=== PATIENT | female | born 1940 | race Caucasian/White ===

== ENCOUNTER 2016-08-04 01:46 | Inpatient (IN) | payer OTHER, MEDICARE ==
[~2016-08-04] VITALS: Ht 165.1 cm; Wt 62.6 kg
[~2016-08-04 01:46] MED LIST: ATORVASTATIN CA40 M1 PO
--- NOTE | 2016-08-04 10:46 | Admission Core Measures ---
Admission Meds I reviewed the following Meds: Current Medications Sig/Festus Start time Last Medication Dose Stop Time Status Admin Acetaminophen 975 MG ONCE 08/04 NR (Tylenol) 08/04 2358 Oxycodone HCl 10 MG ONCE 08/04 NR (Roxicodone) 08/04 2358 Acute Coronary Syndrome Inclusion Criteria ACS Diagnosis No Inpatient Core Measures LDL Reminder: If No, please order W/I first 24hr of stay Congestive Heart Failure Inclusion Criteria CHF Diagnosis No Cerebrovascular accident Inclusion Criteria CVA/TIA Diagnosis No Inpatient Core Measures Bedside Swallow Eval Reminder: If BSE failed, place ST order Antithrombotic Reminder: Order Antithrombotic Medication by end of day 2 Antithrombotic Reminder: Document Reason Antithrombotic Not ordered by end of day 2 AFIB/Flutter Reminder: If Present, add to problem list AFIB/Flutter Reminder: Order Anticoag Medication for pts with AFIB/Flutter Atherosclerosis Reminder: If Present, add to problem list LDL Reminder: If No, please order W/I first 24hr of stay PT Order Reminder: If No, please order Venous thromboembolism Inpatient Core Measures VTE Risk Factors: Age > 40, Surgery No [facility] VTE prophylaxis d/t No contraindications No VTE Pharm Prophylaxis d/t No contraindications Inclusion Criteria - Per Current guidelines, there needs to be overlap - treatment for the first 5 days of Warfarin therapy. - Parenteral Anticoagulation (IV or SC) needs to be - given along with Warfarin therapy. VTE Diagnosis No VTE Type NONE VTE Confirmed by (Test) NONE Problem List As ranked by this Provider includes Assessment & Plan 1. Status post total hip replacement, left HOME MEDS Home Med List Atorvastatin Calcium 40 MG TABLET 1 TAB PO DAILY CHOLESTEROL (Reported)
[2016-08-04] MEDS ORDERED: MIRALAX17 G1 PO (14:02)
[2016-08-04] MEDS ORDERED: COLACE100 M1 PO (14:02)
[2016-08-04] MEDS ORDERED: ASPIRIN EC325 M2 PO (14:02)
[2016-08-04] MEDS ORDERED: DILAUDID2 M1 PO (14:02)
--- NOTE | 2016-08-04 14:26 | Surgical Discharge Summary ---
See Addendum Visit Information Visit Dates Admission Date: 08/04/16 Discharge Date: 08/07/16 History of Present Illness Chief Complaint: Left hip DJD/osteoarthritis, left knee pain Medical History Cardiovascular: hyperlipidemia Cancer(s): breast cancer (mets to brain) Isolation History: Standard Tetanus Vaccine: 11/21/15 Surgical History Pertinent Surgical History: hip replacement, masectomy Psychosocial History Who Do You Live With? Patient/Self Services at Home: NONE What is Your Primary Language? Luxembourgish Review of Systems: See H&P Hospital Course Course Attending Physician: POORNIMA CARRINGTON MD Primary Care Physician: TAYLOR TATE MD [facility] Course: Patient was admitted to [facility] for elective surgery on 08/04/2016 and underwent left total hip replacement. The patient tolerated the procedure well, without complications. The postoperative course remained uneventful. Pain was well controlled with oral pain medication, tolerated a regular diet, and voiding without difficulty. The patient was evaluated by physical therapy during admission, was deemed stable from a medical standpoint, and was discharged. Allergies: Coded Allergies: Penicillins (CHILDHOOD - RASH 08/04/16) RASH PER MAGNOLIA IN SAME DAY. -CG 08/04/16 1125 Significant Procedures: 08/04/2016 left anterior total hip replacement Disposition Summary Disposition Principal Diagnosis: Left hip DJD/osteoarthritis Additional Diagnosis: hyperlipidemia Discharge Disposition: home health services Discharge Instructions General Discharge Information Code Status: Full Code Patient's Diet: Heart healthy Patient's Activity: Avoid strenuous activity. You may ambulate as desired with rolling walker and progressed per PT recommendations. No driving while using narcotics and until cleared by M.D. Follow-Up Instructions/Appts: Incision: Dry dressing. May shower. No baths. No ointments of any kind. Ice as needed. Bowel regimen: Colace and or MiraLAX Weight-bearing as tolerated Follow-up with Dr. Carrington in 6 weeks. Call office for fevers greater than 101.5, excessive drainage or inability to bear weight on operative extremity. Visiting nurse will remove vicki. Medications at Discharge Discharge Medications: Continue taking these medications: Atorvastatin Calcium (Atorvastatin Calcium) 40 MG TABLET 1 Tablet ORAL DAILY Start taking the following new medications: Docusate Sodium (Colace) 100 MG CAPSULE 1 Capsule ORAL TWICE DAILY Days = 7 No Refills Instructions: HOLD FOR LOOSE BM'S Polyethylene Glycol 3350 (Miralax) 17 GRAM POWD.PACK 1 Packet ORAL DAILY Days = 7 No Refills Instructions: HOLD FOR LOOSE BM Aspirin (Ecotrin*) 325 MG TABLET.DR 1 Tablet ORAL DAILY Days = 28 No Refills Hydromorphone HCl (Dilaudid) 2 MG TABLET 1-2 Tablet ORAL EVERY 4 HOURS NEEDED as needed for PAIN Qty = 36 No Refills
--- NOTE | 2016-08-04 15:28 | RADIOLOGY REPORT ---
EXAMINATION: XR HIP, LEFT CLINICAL INFORMATION: Status post left total hip replacement COMPARISON: MRI dated 03/12/2016 TECHNIQUE: AP and crosstable lateral views of the left hip. FINDINGS: Prosthetic components of the left total hip arthroplasty are appropriately aligned. No periprosthetic fracture. Gas from recent surgery is present in the surrounding soft tissues. IMPRESSION: Normal postoperative appearance of the left total hip prosthesis.
--- NOTE | 2016-08-04 15:54 | Patient Discharge Instructions ---
Discharge Instructions General Discharge Information You were seen/treated for: Left hip DJD/osteoarthritis You had these procedures: Left anterior total hip replacement Watch for these problems: Fever greater than 101, excessive drainage from the wound, and inability to bear weight on the operative side. Do not soak the wound: Yes Daily wet to dry dressings: No No bath, but you may shower: Yes Other wound care: Dry dressing change once daily starting postoperative day #2. You may shower as desired. No baths. No ointments of any kind. Ice as needed for comfort. Diet Continue normal diet: Yes Recommended Diet: Heart Healthy Activity Full Activity/No Limits: No Activity Self Limited: Yes Pounds, do NOT lift more than: 5 Activity Limited to: Weight bear as tolerated Other activity limits: Avoid strenuous activity. You may ambulate as desired with rolling walker and progressed per PT recommendations. No driving while using narcotics and until cleared by [facility] Acute Coronary Syndrome Inclusion Criteria At DC or during hospital stay patient has or had the following: ACS DIAGNOSIS No Discharge Core Measures Meds if any: Prescribed or Continued at Discharge Meds if any: NOT Prescribed or Continued at Discharge Congestive Heart Failure Inclusion Criteria At DC or during hospital stay patient has or had the following: CHF DIAGNOSIS No Discharge Core Measures Meds if any: Prescribed or Continued at Discharge Meds if any: NOT Prescribed or Continued at Discharge Cerebrovascular accident Inclusion Criteria At DC or during hospital stay patient has or had the following: CVA/TIA Diagnosis No Discharge Core Measures Meds if any: Prescribed or Continued at Discharge Meds if any: NOT Prescribed or Continued at Discharge Venous thromboembolism Inclusion Criteria VTE Diagnosis No VTE Type NONE VTE Confirmed by (Test) NONE Discharge Core Measures - Per Current guidelines, there needs to be overlap - treatment for the first 5 days of Warfarin therapy. - If discharged on Warfarin prior to 5 days of - overlap therapy, the patient will need to be - assessed for post discharge needs including - *Post discharge parental anticoagulation - *Warfarin and/or parental anticoagulation education - *Follow up date to check INR post discharge At least 5 days overlap therapy as Inpatient No Meds if any: Prescribed or Continued at Discharge Note: Overlap Therapy is Warfarin and Anticoagulant Meds if any: NOT Prescribed or Continued at Discharge
--- NOTE | 2016-08-04 16:23 | Operative Report ---
Operative/Inv Procedure Report Surgery Date: 08/04/16 Name of Procedure: Left total hip replacement Pre-Operative Diagnosis: Left hip avascular necrosis Post-Operative Diagnosis: Same Estimated Blood Loss: 250 Surgeon/Winder Operator: ZEB QUIROGA,POORNIMA Boyce Anesthesia: block Operative/Procedure Note Note: Description of Procedure: The patient was taken to the operating room and positively identified. After induction of spinal anesthesia and administration of appropriate pre-operative antibiotics, the patient was positioned supine on the operating room table and all bony prominences were well padded. After performing a surgical timeout, the left lower extremity was prepped and draped in the usual sterile fashion. A direct anterior approach was made to the left hip. The incision was carried sharply through superficial soft tissues to the level of the fascia. Meticulous hemostasis was maintained with Bovie electocautery. The fascia over the tensor fascia rufino muscle was opened sharply and the interval between the TFL and the sartorius was entered bluntly taking care to stay lateral to the lateral femoral cutaneous nerve. Retractors were placed around the femoral neck and the pericapsular fat was identified. The ascending branches of the lateral femoral circumflex vessels were identified and carefully coagulated. The pericapsular fat and anterior capsule were then resected. A napkin ring osteotomy was performed and the femoral head was removed without difficulty. Attention was then turned to the acetabulum. After appropriate placement of retractors, the acetabulum was exposed. Soft tissue was cleaned from the acetabular margin and notch. Overhanging osteophytes were removed and the teardrop was exposed. The acetabulum was then sequentially reamed to accept a 54 mm Chandu Tritanium hemispherical solid back shell. This was impacted into place in the appropriate position and fitted with a 36 mm Trident X3 zero degree polyethylene insert. Attention was then turned to the femur. After performing the appropriate ligament releases, the proximal femur was exposed. It was then sequentially broached to accept a size 7 Chandu accolade 2 stem. This was trialed for leg length and stability. The trial component was removed and the final component was impacted into place. The trunnion was carefully cleaned and fit with a 36 mm, -5 Biolox delta ceramic femoral head. The hip was reduced and put through a full range of motion and found to be stable. The articular space was then irrigated with sterile saline. The periarticular soft tissues were infilitrated with Marcaine. The fascial layer was closed with interrupted #1 vicryl suture and the skin was re-approximated with interrupted 2 -0 vicryl. The skin was closed with a running 3-0 V-Lock suture. Steri-strips and a sterile dressing were applied. The patient was awakened and taken to the recovery room in satisfactory condition.
--- NOTE | 2016-08-04 16:37 | PN- Orthopedic ---
Subjective Subjective: Post op check Awake and alert, no specific complaints, no nausea, pain well controlled at this time Objective Vital Signs and I&Os VSS, afebrile General: awake and alert Chest: clear anteriorly bilaterall, RRR Abd: soft, good bs Ext: warm, no edema, positive sensate, no calf tenderness, 5/5 CHARU BLE Wound: dressed, dry Assessment/Plan Assessment/Plan 76 yo female s/p L THR pain management asa 325mg po bid for dvt ppx PT - WBAT plan to dc to rehab vs home once cleared by PT Core Measures/Miscellaneous Venous Thromboembolism VTE Risk Factors: Age > 40, Surgery VTE Contraindications: No Contraindications VTE Diagnosis: No VTE Type: NONE VTE Confirmed by (Test): NONE Beta Viktor Is Beta Viktor a Home Med? No Antibiotics Is Patient on Antibiotics? Yes If Yes: prophylaxis (24 hrs post op)
[2016-08-04 16:58] VITALS: BP 142/71
--- NOTE | 2016-08-04 18:55 | NUR ---
ADMISSION NOTE: PT ARRIVED ON FLOOR AT 1645. PT A&OX3, RA, VSS, AFEBRILE, PT DENIES PAIN AT THIS TIME. +CMS, +PULSES. DRESSING TO L HIP C,D,I. ICE TO AREA. #20 IV LH W/D5 1/2 NS INFUSING AT 75ML/HR. PT ORIENTED TO ROOM/FLOOR. ASST TO BR W/RW X1. VOIDED IN HAT W/NO DIFFICULTY. DINNER ORDERED.
--- NOTE | 2016-08-04 18:58 | NUR ---
ADMISSION NOTE: PT ARRIVED TO FLOOR AT 1730 FROM ED. PT A&OX3, RA, VSS, AFEBRILE. SKIN INTACT. PT AMBULATED TO ASST X1 FEELING "UNSTEADY". NO H/O FALL. PT COMPLAINING OF PAIN 8/10 IN LOWER BACK. #20 IV IN LAC, LR @150ML/HR. PT ASKING ABOUT ZOFRAN AND ATIVAN ORDERS. SPOKE W/INFORMATICIST TO GET ORDERS IN PLACE. MEDICATED FOR PAIN. WILL REASSESS CIWA AND NAUSEA. PT ORIENTED TO FLOOR/ROOM.
[2016-08-04 19:25] VITALS: BP 128/79
[2016-08-04 21:15] VITALS: BP 110/78
[2016-08-04 23:08] VITALS: BP 106/68
[2016-08-05 03:34] VITALS: BP 110/60
[2016-08-05 06:13] VITALS: BP 120/60
--- NOTE | 2016-08-05 07:09 | PN- Orthopedic ---
Subjective Subjective: The patient seen this morning postoperatively day #1. She reports the pain is under adequate control and has no other complaints at the current time. She is slightly anxious worked with physical therapy this morning. Objective Vital Signs and I&Os Vital Signs Date Time Temp Pulse Resp B/P B/P Pulse O2 O2 Flow FiO2 Mean Ox Delivery Rate 08/05 612 97.8 77 20 120/60 95 Room Air 08/05 0334 97.8 73 20 110/60 97 Room Air 08/04 2308 98.0 72 20 106/68 96 Room Air 08/04 2115 98.1 88 20 110/78 96 Room Air 08/04 1925 97.6 78 20 128/79 96 Room Air 08/04 1658 97.4 69 20 142/71 98 Room Air Intake & Output 08/05 0808/05 0000 08/04 1600 08/04 0808/04 0000 08/03 1600 Intake Total 1130 1050 Output Total 500 450 Balance 630 600 Intake, IV 650 450 Intake, Oral 480 600 Output, Urine 500 450 Patient 138 lb Weight Weight Estimated Measurement Method Physical Exam: Gen.: Alert and in no obvious distress Skin: Warm and dry Extremities: Bilateral lower extremities are warm without calf tenderness or significant edema. Gross motor and sensory are intact. Left hip surgical dressing is clean, dry, and intact without signs of infection. Assessment/Plan Assessment/Plan Assessment: 76-year-old female status post left total hip arthroplasty postoperative day 1. The patient is progressing as expected and her pain is under adequate control. Plan: Out of bed with physical therapy Hep-Lock IV fluids Continue current pain regiment Strict I's and O's Follow-up morning laboratory studies GI and DVT prophylaxis Core Measures/Miscellaneous Venous Thromboembolism VTE Risk Factors: Age > 40, Surgery VTE Contraindications: No Contraindications VTE Diagnosis: No VTE Type: NONE VTE Confirmed by (Test): NONE Beta Viktor Is Beta Viktor a Home Med? No Antibiotics Is Patient on Antibiotics? No
[2016-08-05 08:10] LABS: ABSOLUTE BASOPHIL COUNT 0 /CUMM (0.0-0.2); ABSOLUTE EOSINOPHIL COUNT 0.1 /CUMM (0.0-0.7); ABSOLUTE GRANULOCYTE CT 6.8 /CUMM (1.4-6.5); ABSOLUTE LYMPH COUNT 0.9 /CUMM (1.2-3.4); BASOPHIL % 0.2 % (0.0-2.0); EOSINOPHIL % 0.9 % (0-5); GRANULOCYTE % 77.9 % (42.2-75.2); HEMATOCRIT 31.2 % (37-47); MEAN CORPUSCULAR HGB 33.4 PG (27.0-31.0); MEAN CORPUSCULAR VOLUME 98.3 FL (81.0-99.0); MEAN PLATELET VOLUME 7.6 FL (7.4-10.4); PLATELET COUNT 209 /CUMM (130-400); RBC DISTRIBUTION WIDTH 13.3 % (11.5-14.5); RED BLOOD CELL CT 3.17 /CUMM (4.20-5.40); WHITE BLOOD CELL COUNT 8.8 /CUMM (4.8-10.8)
--- NOTE | 2016-08-05 09:51 | Cons- Medical ---
General Information and HPI Consulting Request Date of Consult: 08/05/16 Requested By: POORNIMA CARRINGTON MD Reason for Consult: Medical comanagement Source of Information: patient, old records Exam Limitations: no limitations History of Present Illness: 76-year-old female with no significant past medical history except for dyslipidemia is status post elective left total hip arthroplasty day 1 without complication. She does have moderate amount of pain of her left hip. She has had no bowel movements yet. Pain adequately controlled on current pain medication. Allergies/Medications Allergies: Coded Allergies: Penicillins (CHILDHOOD - RASH 08/04/16) RASH PER MAGNOLIA IN SAME DAY. -CG 08/04/16 1125 Home Med List: Aspirin (Ecotrin*) 325 MG TABLET.DR 1 TAB PO DAILY DVT PROPHYLAXIS Atorvastatin Calcium 40 MG TABLET 1 TAB PO DAILY CHOLESTEROL (Reported) Docusate Sodium (Colace) 100 MG CAPSULE 1 CAP PO BID CONSTIPATION HOLD FOR LOOSE BM'S Hydromorphone HCl (Dilaudid) 2 MG TABLET 1-2 TAB PO Q4P PRN PAIN Polyethylene Glycol 3350 (Miralax) 17 GRAM POWD.PACK 1 PAC PO DAILY CONSTIPATION HOLD FOR LOOSE BM Current Medications: Current Medications Sig/Festus Start time Last Medication Dose Route Stop Time Status Admin Acetaminophen 650 MG Q4P PRN 08/04 1700 AC PO Acetaminophen 0 .STK-MED ONE 08/04 1207 DC PO Acetaminophen 975 MG ONCE 08/04 0000 DC PO 08/04 2359 Aspirin 325 MG BID 08/04 2200 AC / PO 0837 Atorvastatin Calcium 40 MG 1700 08/04 1800 AC 08/04 PO 1846 Cefazolin Sodium 2 GM Q8H 08/04 2200 DC 08/05 N/A 1 UNIT IV 08/05 0629 0522 Cefazolin Sodium 2 GM ONCE 08/04 0000 DC N/A 1 UNIT IV 08/04 2359 Dextrose/Sodium 1,000 ML .[id number] 08/04 1700 DC 08/05 Chloride IV 0523 Docusate Sodium 100 MG BID 08/04 1400 AC 08/05 PO 0837 Hydromorphone HCl 2 MG Q4P PRN 08/04 1700 AC 05 PO 0247 Hydromorphone HCl 4 MG Q4P PRN 08/04 1700 AC 08/05 PO 0837 Morphine Sulfate 2 MG Q3P PRN 08/04 1700 AC IV Ondansetron HCl 4 MG Q6P PRN 08/04 1700 AC IV Oxycodone HCl 0 .STK-MED ONE 08/04 1208 DC PO Oxycodone HCl 10 MG ONCE 08/04 0000 DC PO 08/04 2359 Polyethylene Glycol 17 GM DAILY 08/04 1400 AC 08/05 PO 0837 Review of Systems Review of Systems Constitutional: Denies: no symptoms, see HPI, chills, diaphoresis, fever, malaise, weakness, unexplained weight loss. Cardiovascular: Denies: no symptoms, see HPI, chest pain, edema, orthopena, palpitations, peripheral edema, syncope. Respiratory: Denies: no symptoms, see HPI, cough, hemoptysis, orthopnea, short of breath, sputum production, stridor, wheezing. GI: Denies: no symptoms, see HPI, abdominal pain, bloating, constipation, diarrhea, distention, bowel incontinence, melena, nausea, bloody stool, changes in stool, vomiting, steatorrhea. Genitourinary: Denies: no symptoms, see HPI, discharge, dysuria, frequency, hematuria, hesitation, nocturia, pain, urgency. Musculoskeletal: Reports: joint pain. 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 Surgical History Surgical History: hip replacement, masectomy Psychosocial History Services at Home: NONE Smoking Status: Former Smoker Exam & Diagnostic Data Last 24 Hrs of Vital Signs/I&O Vital Signs Date Time Temp Pulse Resp B/P B/P Pulse O2 O2 Flow FiO2 Mean Ox Delivery Rate 08/05 612 97.8 77 20 120/60 95 Room Air 08/05 0334 97.8 73 20 110/60 97 Room Air 08/04 2308 98.0 72 20 106/68 96 Room Air 08/04 2115 98.1 88 20 110/78 96 Room Air 08/04 1925 97.6 78 20 128/79 96 Room Air 08/04 1658 97.4 69 20 142/71 98 Room Air Intake & Output 08/05 1600 08/05 0800 08/05 0000 Intake Total 1130 1050 Output Total 500 450 Balance 630 600 Intake, IV 650 450 Intake, Oral 480 600 Output, Urine 500 450 Patient 62.596 kg Weight Weight Estimated Measurement Method Physical Exam General Appearance: awake, comfortable Respiratory: normal breath sounds Cardiovascular: regular rate/rhythm Gastrointestinal: soft, non-tender Extremities: no edema, left hip vicki Last 24 Hrs of Labs/Tonny: Laboratory Tests 08/05/16 0625: Anion Gap 8, Estimated GFR > 60, BUN/Creatinine Ratio 20.0, CBC w Diff NO MAN DIFF REQ, RBC 3.17 L, MCV 98.3, MCH 33.4 H, RDW 13.3, MPV 7.6, Gran % 77.9 H, Lymphocytes % 10.0 L, Monocytes % 11.0 H, Eosinophils % 0.9, Basophils % 0.2, Absolute Granulocytes 6.8 H, Absolute Lymphocytes 0.9 L, Absolute Monocytes 1.0 H, Absolute Eosinophils 0.1, Absolute Basophils 0, PUBS MCHC 34.0 Assessment/Plan Assessment/Plan 76-year-old female with no significant past medical history except for dyslipidemia is status post elective left total hip arthroplasty day 1 without complication. She does have moderate amount of pain of her left hip. She has had no bowel movements yet. Pain adequately controlled on current pain medication. Noted mild anemia likely secondary to intraoperative blood loss. Plan Continue current pain meds Strict constipation regimen DVT prophylaxis as per primary team Continue home meds PT evaluation and placement to [facility] Problem List: 1. Status post total hip replacement, left Copies To: ZEB QUIROGA,POORNIMA Consult Acknowledgment - Thank you for your consult request.
[2016-08-05 10:00] VITALS: BP 110/78
[2016-08-05 14:18] VITALS: BP 116/80
[2016-08-05 22:15] VITALS: BP 140/72
[2016-08-06 06:58] VITALS: BP 130/64
--- NOTE | 2016-08-06 07:16 | PN- Orthopedic ---
Subjective Subjective: POD#2 S/P LEFT ADAMA 7/10 PAIN OVERNIGHT NO ICE ON HIP CURRENTLY DENIES CP, SOB, NO N+V WQITH DIET Objective Vital Signs and I&Os Vital Signs Date Time Temp Pulse Resp B/P B/P Pulse O2 O2 Flow FiO2 Mean Ox Delivery Rate 08/05 2215 98.1 95 19 140/72 98 Room Air / 1418 98.2 74 20 116/80 94 Room Air 08/05 1000 98.4 91 20 110/78 96 Room Air Intake & Output 08/06 0800 08/06 0000 08/05 1600 08/05 0800 08/05 0000 08/04 1600 Intake Total 240 5466 490 0182 1050 Output Total 500 500 650 500 450 Balance -260 500 270 630 600 Intake, IV 20 650 450 Intake, Oral 240 1000 900 480 600 Number 0 Bowel Movements Output, Urine 500 500 650 500 450 Patient 138 lb Weight Weight Estimated Measurement Method Physical Exam: CV: RRR LUNGS: CLEAR ABD: SOFT, +BS EXT: DRSG CHANGED, WOUND C/D/I NO CALF TENDERNESS BILAT DISTAL CMS INTACT Assessment/Plan Assessment/Plan ORTHO STABLE PLAN ICE TO HIP AT ALL TIMES CONT OOB WITH PT HOME V REHAB TITRATE PAIN MEDS TODAY Core Measures/Miscellaneous Venous Thromboembolism VTE Risk Factors: Age > 40, Surgery VTE Contraindications: No Contraindications VTE Diagnosis: No VTE Type: NONE VTE Confirmed by (Test): NONE Beta Viktor Is Beta Viktor a Home Med? No Antibiotics Is Patient on Antibiotics? No
--- NOTE | 2016-08-06 09:43 | PN- Medicine Consult ---
Assessment/Plan Assessment/Plan Assessment: 76-year-old female with no significant past medical history except for dyslipidemia is status post elective left total hip arthroplasty day 2 without complication. She does have moderate amount of pain of her left hip. She has had no bowel movements since the surgery. Pain adequately controlled on current pain medication. Noted mild anemia likely secondary to intraoperative blood loss. Patient ambulating with minimal discomfort. Plan: Plan Continue current pain meds Consider Relistor if no bowel movements Strict constipation regimen Continue home meds DVT prophylaxis PT evaluation and placement to [facility] Problem List: 1. Status post total hip replacement, left Subjective Subjective: Patient complains of moderate left hip pain otherwise ambulating with a walker. Review of Systems Constitutional: Denies: no symptoms, see HPI, chills, diaphoresis, fever, malaise, weakness, unexplained weight loss. Cardiovascular: Denies: no symptoms, see HPI, chest pain, edema, orthopena, palpitations, peripheral edema, syncope. Respiratory: Denies: no symptoms, see HPI, cough, hemoptysis, orthopnea, short of breath, sputum production, stridor, wheezing. Gastrointestinal: Denies: no symptoms, see HPI, abdominal pain, bloating, constipation, diarrhea, distention, bowel incontinence, melena, nausea, bloody stool, changes in stool, vomiting, steatorrhea. Musculoskeletal: Reports: joint swelling, muscle pain. Objective Last 24 Hrs of Vital Signs/I&O Vital Signs Date Time Temp Pulse Resp B/P B/P Pulse O2 O2 Flow FiO2 Mean Ox Delivery Rate 08/06 0658 98.6 96 18 130/64 96 Room Air 08/05 2215 98.1 95 19 140/72 98 Room Air 08/05 1418 98.2 74 20 116/80 94 Room Air 08/05 1000 98.4 91 20 110/78 96 Room Air Intake & Output 08/06 1600 / 0800 05/ 0000 Intake Total 240 1000 Output Total 500 500 Balance -260 500 Intake, Oral 240 1000 Output, Urine 500 500 Physical Exam General Appearance: alert, awake, comfortable Cardiovascular: regular rate/rhythm Respiratory: normal breath sounds, lungs clear Abdomen: soft, non-tender Extremities: no edema Current Medications: Current Medications Sig/Festus Start time Last Medication Dose Route Stop Time Status Admin Acetaminophen 650 MG Q4P PRN 08/04 1700 AC / PO 0533 Aspirin 325 MG BID 08/04 2200 AC 08/06 PO 0941 Atorvastatin Calcium 40 MG 1700 08/04 1800 AC 08/05 PO 1632 Bisacodyl 10 MG ONCE ONE 08/06 0800 DC NC 08/06 0801 Docusate Sodium 100 MG BID 08/04 1400 AC 08/06 PO 0941 Hydromorphone HCl 2 MG Q4P PRN 08/04 1700 AC 08/05 PO 0247 Hydromorphone HCl 4 MG Q4P PRN 08/04 1700 AC 08/06 PO 0730 Ketorolac 15 MG Q6P PRN 08/06 0715 AC 08/06 Tromethamine IM 0732 Morphine Sulfate 2 MG Q3P PRN 08/04 1700 AC IV Ondansetron HCl 4 MG Q6P PRN 08/04 1700 AC IV Polyethylene Glycol 17 GM DAILY 08/04 1400 AC 08/06 PO 0941 Results Last 24 Hrs Lab/Tonny Results: none
--- NOTE | 2016-08-06 10:00 | NUR ---
NURSING NOTE: PT CONTINUES TO REFUSE THE [facility], PT TOOK COLACE AND MIRALAX. PA AWARE
--- NOTE | 2016-08-06 14:04 | NUR ---
BP 96/58, PT ASYMPTOMATIC AT THIS TIME. SURGICAL PA CATALINO AZEVEDO NOTIFIED. CURRENT POC IS TO ENCOURAGE PO INTAKE AND RECHECK BLOOD PRESSURE IN ONE HOUR. WILL CONTINUE TO MONITOR.
[2016-08-06 14:33] VITALS: BP 96/58
[2016-08-06 15:44] VITALS: BP 118/66
[2016-08-06 21:56] VITALS: BP 120/80
[2016-08-07 06:30] VITALS: BP 116/70
--- NOTE | 2016-08-07 07:29 | PN- Orthopedic ---
Subjective Subjective: Patient with pain in the anterior portion of the left hip, it is getting better every day, it is controlled pain medication. She has no other complaints. Objective Vital Signs and I&Os Vital Signs Date Time Temp Pulse Resp B/P B/P Pulse O2 O2 Flow FiO2 Mean Ox Delivery Rate 08/07 0630 98.4 93 18 116/70 98 Room Air 08/06 2156 99.2 94 17 120/80 98 08/06 1544 118/66 08/06 1433 97.9 80 18 96/58 96 Room Air 08/06 1051 Room Air Intake & Output 08/07 0808/07 0000 08/06 1600 08/06 0808/06 0000 08/05 1600 Intake Total 120 600 020 500 5499 920 Output Total 600 650 500 500 650 Balance -480 600 150 -260 500 270 Intake, IV 0 20 Intake, Oral 120 600 768 256 0742 900 Number 0 0 Bowel Movements Output, Urine 600 650 500 500 650 Physical Exam: Well-developed well-nourished no apparent distress. HEENT: Atraumatic, extraocular motion intact Neck: Supple, no lymphadenopathy Respiratory: No respiratory distress Extremities: No edema Left lower extremity hip dressing in place, Dressing clean dry and intact with minimal bloody staining Incision without erythema Mild thigh edema No signs of infection. No shortening or rotation Hip range of motion is limited and without unexpected pain Neurovascularly intact distally Bilateral calves are supple, nontender. Neuro: Alert and oriented x3 Psych: Mood affect normal, normal memory normal judgment. Skin: Warm and dry, no rash on exposed skin Assessment/Plan Assessment/Plan Postop day 3 status post left total hip arthroplasty anterior approach Patient stable for [facility] to [facility] for continued physical therapy and rehabilitation Continue aspirin for DVT prophylaxis Pain medication as needed Follow-up as outpatient in approximately 6 weeks with orthopedic surgeon Discussed with patient who understands and agrees with plan Core Measures/Miscellaneous Venous Thromboembolism VTE Risk Factors: Age > 40, Surgery VTE Contraindications: No Contraindications VTE Diagnosis: No VTE Type: NONE VTE Confirmed by (Test): NONE Beta Viktor Is Beta Viktor a Home Med? No Antibiotics Is Patient on Antibiotics? No
--- NOTE | 2016-08-07 09:26 | PN- Medicine Consult ---
Assessment/Plan Assessment/Plan Assessment: 76-year-old female with no significant past medical history except for dyslipidemia is status post elective left total hip arthroplasty day 3 without complication. She does have moderate amount of pain of her left hip. She has had no bowel movements since the surgery. Pain adequately controlled on current pain medication. Patient ambulating with minimal discomfort. Plan: Plan Continue current pain meds Strict constipation regimen upon discharge Continue home meds DVT prophylaxis Stable for discharge to [facility] Problem List: 1. Status post total hip replacement, left Subjective Subjective: Minimal pain Review of Systems Constitutional: Denies: no symptoms, see HPI, chills, diaphoresis, fever, malaise, weakness, unexplained weight loss. Cardiovascular: Denies: no symptoms, see HPI, chest pain, edema, orthopena, palpitations, peripheral edema, syncope. Respiratory: Denies: no symptoms, see HPI, cough, hemoptysis, orthopnea, short of breath, sputum production, stridor, wheezing. Gastrointestinal: Denies: no symptoms, see HPI, abdominal pain, bloating, constipation, diarrhea, distention, bowel incontinence, melena, nausea, bloody stool, changes in stool, vomiting, steatorrhea. Musculoskeletal: Reports: joint pain. Objective Last 24 Hrs of Vital Signs/I&O Vital Signs Date Time Temp Pulse Resp B/P B/P Pulse O2 O2 Flow FiO2 Mean Ox Delivery Rate 08/07 0630 98.4 93 18 116/70 98 Room Air 08/06 2156 99.2 94 17 120/80 98 / 1544 118/66 05/ 1433 97.9 80 18 96/58 96 Room Air 08/06 1051 Room Air Intake & Output 08/07 1600 08/07 0800 08/07 0000 Intake Total 120 600 Output Total 600 Balance -480 600 Intake, Oral 120 600 Output, Urine 600 Physical Exam General Appearance: alert, awake, comfortable Cardiovascular: regular rate/rhythm Respiratory: normal breath sounds, chest non-tender Abdomen: soft, non-tender Extremities: tenderness Current Medications: Current Medications Sig/Festus Start time Last Medication Dose Route Stop Time Status Admin Acetaminophen 650 MG Q4P PRN 08/04 1700 AC 05/ PO 0533 Aspirin 325 MG BID 08/04 2200 AC 05 PO 0823 Atorvastatin Calcium 40 MG 1700 08/04 1800 AC 08/06 PO 1619 Docusate Sodium 100 MG BID 08/04 1400 AC 05/04 PO 0824 Hydromorphone HCl 2 MG Q4P PRN 08/04 1700 AC 08/07 PO 0823 Hydromorphone HCl 4 MG Q4P PRN 08/04 1700 AC 08/06 PO 0730 Ketorolac 15 MG Q6P PRN 08/06 0715 AC 08/06 Tromethamine IM 0732 Morphine Sulfate 2 MG Q3P PRN 08/04 1700 AC IV Ondansetron HCl 4 MG Q6P PRN 08/04 1700 AC IV Patient Medication 1 ED .STK-MED ONE 08/06 1356 MN Teaching ED 08/06 1357 Polyethylene Glycol 17 GM DAILY 08/04 1400 AC 08/07 PO 0825 Results Last 24 Hrs Lab/Tonny Results: none
[2016-08-07 10:34] VITALS: BP 116/70
== END 2016-08-07 11:05 | DRG 470 ==
LOC: SDA 01:46 → 2NB 01:46 → SDA 07:00 → ENRESERV 15:42 → 2NB 16:44 → ENPENDDIS 08-07 07:48 → 2NB 08-07 11:05
PROVIDERS: Physician Assistant Surgical; ADMIT Orthopaedic Surgery
PROC: 0SRB04A Replacement of Left Hip Joint with Ceramic on Polyethylene Synthetic Substitute, Uncemented, Open Approach (ICD-10-PCS; principal; 2016-08-04)
DX: M87.9 Osteonecrosis, unspecified (principal); Z94.84 Stem cells transplant status; D62 Acute posthemorrhagic anemia; E78.5 Hyperlipidemia, unspecified; Z85.3 Personal history of malignant neoplasm of breast; Z87.891 Personal history of nicotine dependence
CPT/HCPCS: 2NBSP; 73502-LT; 82436; 88304; 97110-GO; 97116-GO; 97161-GP; 97530-GO; J0690; J0735; J1885; J2405; J7042